=== PATIENT | female | born 1985 | race Caucasian/White ===

== ENCOUNTER 2018-12-18 16:34 | Inpatient (IN) | payer OTHER, SELFPAY ==
[~2018-12-18] VITALS: Ht 165.1 cm; Wt 93.9 kg
[2018-12-18 17:29] LABS: AMNIO PT NEGATIVE
[2018-12-18 17:44] LABS: BILIRUBIN,URINE NEGATIVE (NEG); CLARITY,URINE CLEAR; COLOR,URINE YELLOW; NITRITE,URINE NEGATIVE (NEG); PROTEIN,URINE NEGATIVE (NEG-TRACE)
[2018-12-18 17:56] LABS: BACTERIA,URINE FEW /HPF (0-FEW); SQUAMOUS EPITHELIAL CELL,UR FEW /LPF
[2018-12-18 18:00] LABS: AMPHETAMINE/METHAMPHETAMINE POS (NEG); BARBITURATES NEG (NEG); BENZODIAZEPINES NEG (NEG); CANNABINOIDS POS (NEG); COCAINE NEG (NEG); METHADONE NEG (NEG); OPIATES NEG (NEG); PHENCYCLIDINE NEG (NEG)
[2018-12-18 19:13] LABS: BASO % 0 % (0-3); EOS # 0.1 x10^3/uL (0.0-0.7); EOS % 1 % (0-3); HEMATOCRIT 32.2 % (36.0-47.0); HEMOGLOBIN 11.4 g/dL (12.0-15.5); LYMPH # 1.7 x10^3/uL (1.0-4.8); LYMPH % 15 % (24-48); MEAN CORPUSCULAR HEMOGLOBIN 32 pg (25-35); MEAN CORPUSCULAR HGB CONC 35 g/dL (31-37); MEAN CORPUSCULAR VOLUME 90 fL (79-100); MONO # 0.7 x10^3/uL (0.0-1.1); MONO % 6 % (0-9); NEUT # 8.6 x10^3uL (1.8-7.7); NEUT % 78 % (31-73); PLATELET COUNT 205 x10^3/uL (140-400); RED BLOOD COUNT 3.56 x10^6/uL (3.50-5.40); RED CELL DISTRIBUTION WIDTH 12.7 % (11.5-14.5); WHITE BLOOD COUNT 11.1 x10^3/uL (4.0-11.0)
[2018-12-18] MEDS ORDERED: BUTORPHANOL 2 MG/ML VIAL. ONE (19:57)
[2018-12-18] MEDS ORDERED: TERBUTALINE 1 MG/ML VIAL. SQ PRN (20:00)
[2018-12-18] MEDS ORDERED: LIDOCAINE 1% PF 30 ML VIAL. INJ PRN (20:00)
[2018-12-18] MEDS ORDERED: 0.9 % SODIUM CHLORIDE 10 ML DISP.SYRIN. IV PRN ×2 (20:00→20:30)
[2018-12-18] MEDS ORDERED: AMPICILLIN SODIUM 2 GM in IV NORMAL SALINE 100ML 100 ML IV ONE (20:00)
[2018-12-18] MEDS ORDERED: ACETAMINOPHEN 325 MG TABLET. PO PRN ×2 (20:00→20:30)
[2018-12-18] MEDS ORDERED: ONDANSETRON PF 4 MG/2 ML VIAL. IV PRN (20:00)
[2018-12-18] MEDS ORDERED: OXYTOCIN 30 UNIT/500 ML PREMIX 500 ML IV PRN ×3 (20:00→20:30)
[2018-12-18] MEDS: IV RINGERS,LACTATED 1000ML 1,000 ML IV SCH (20:01)
[2018-12-18 20:02] VITALS: BP 118/74
[2018-12-18] MEDS: BUTORPHANOL 2 MG/ML VIAL. IV PRN ×2 (20:02→21:23)
[2018-12-18] MEDS ORDERED: ZOLPIDEM 5 MG TABLET. PO PRN (20:30)
[2018-12-18] MEDS ORDERED: BENZOCAINE 20% TOPICAL AEROSOL SPRAY 57GM CAN. TP PRN (20:30)
[2018-12-18] MEDS ORDERED: SIMETHICONE 80 MG TAB.CHEW PO PRN (20:30)
[2018-12-18] MEDS ORDERED: DOCUSATE SODIUM 100 MG CAPSULE. PO PRN (20:30)
[2018-12-18] MEDS ORDERED: diphenhydrAMINE HCL 25 MG CAPSULE PO PRN (20:30)
[2018-12-18] MEDS ORDERED: HYDROCORTISONE 1% TOPICAL OINTMENT 30GM TUBE. TP PRN (20:30)
[2018-12-18] MEDS ORDERED: PHENYLEPH/MINERAL OIL/PETROLAT RECTAL OINTMENT 28GM TUBE. RC PRN (20:30)
[2018-12-18] MEDS ORDERED: MAG HYDROX/ALUMINUM HYD/SIMETH 30 ML ORAL.SUSP PO PRN (20:30)
[2018-12-18] MEDS ORDERED: MAGNESIUM HYDROXIDE 2,400 MG/30 ML ORAL.SUSP. PO PRN (20:30)
--- NOTE | 2018-12-18 20:34 | RAD ---
PREG MORE THAN OR EQ TO 14 WKS History: no care
pt is currently high on meth, cussing, combative
lmp February??
FINDINGS: Study interpreted without the benefit of real-time scanning. Single intrauterine fetus is identified in cephalic presentation. Placenta is anterior. Cardiac activity is documented with a heart rate of 128 bpm. movement is documented. Four-chamber heart is identified. Three-vessel cord is seen. Cord insertion is not visualized. bladder, stomach and kidneys are visualized. brain and spine are visualized. Amniotic fluid index is 4.7, which is low in quantity. The biparietal diameter, head circumference, abdominal circumference and femur length are measured. Note that the biparietal diameter and head circumference measurements correspond with 35 weeks 5 days and 35 weeks 3 days respectively. On the other hand, the abdominal circumference and femur length measurements correspond with 39 weeks 0 days and 39 weeks 2 days respectively. Overall the estimated sonographic age is 37 weeks 3 days with an estimated sonographic due date of 01/05/2019. Estimated weight is 7 lbs. 9 oz. +/- 18 ounces. IMPRESSION: Single viable intrauterine is identified. Findings are compatible with oligohydramnios with an amniotic fluid index of 4.7. Note that there is discrepancy in size measurements, with the head measuring weeks smaller than the abdominal circumference and femur length, as detailed above. Electronically signed by: Junior Zhu MD (12/18/2018 8:30 PM) [facility]
[2018-12-18] MEDS ORDERED: miSOPROStol 200 MCG TABLET ONE ×2 (22:00→22:06)
[2018-12-18] MEDS ORDERED: SUCCINYLCHOLINE 200 MG/10 ML VIAL. ONE (23:15)
[2018-12-18] MEDS ORDERED: GLYCOPYRROLATE 1 MG/5 ML VIAL. ONE (23:42)
[2018-12-18] MEDS ORDERED: LIDOCAINE 2% PF 5 ML VIAL. ONE (23:42)
[2018-12-18] MEDS ORDERED: ONDANSETRON PF 4 MG/2 ML VIAL. ONE (23:42)
[2018-12-18] MEDS ORDERED: METOCLOPRAMIDE HCL 10 MG/2 ML VIAL. ONE (23:42)
[2018-12-18] MEDS ORDERED: PROPOFOL 40 ML IV ONE (23:42)
[2018-12-18] MEDS ORDERED: OXYTOCIN 10 UNIT/ML VIAL. ONE (23:42)
[2018-12-18] MEDS ORDERED: FAMOTIDINE 20 MG/2 ML VIAL ONE (23:42)
[2018-12-18] MEDS ORDERED: ROCURONIUM 50 MG/5 ML VIAL. ONE (23:44)
[2018-12-19] MEDS ORDERED: AMPICILLIN SODIUM 1 GM in IV NORMAL SALINE 50ML 50 ML IV SCH ×2
[2018-12-19] MEDS ORDERED: IBUPROFEN 200 MG TABLET. PO SCH
--- NOTE | 2018-12-19 00:33 | PDOC ---
GENERAL General: 33 yrs old lady unknown EDC Pt got to complete dilatation and developed Distress Patient not Cooperative and Refuses to sign for inspite of explaining to patient about Risk to Baby . Discussed with Dr Simpson and Dr Archer about patient. Finaly Patient signed for Consent for . Patient also has Drug Abuse.problem. VITAL SIGNS Vital Signs: Vital Signs Date Time Temp Pulse Resp B/P (MAP) Pulse Ox O2 Delivery O2 Flow Rate FiO2 12/18/18 21:23 20 Room Air 12/18/18 20:02 97.5 90 118/74 (89) 97.5 ALLERGIES Allergies: Allergies Coded Allergies Type Severity Reaction Last Updated Verified No Known Drug Allergies 12/18/18 No MEDS Medications: Current Medications Medications (Trade) Dose Ordered Sig/Santiago Start Time Stop Time Status Last Admin Dose Admin Acetaminophen (Tylenol) 650 mg PRN Q6HRS PRN 12/18/18 20:30 Al Hydroxide/Mg Hydroxide (Mylanta Plus Xs) 30 ml PRN Q4HRS PRN 12/18/18 20:30 Ampicillin Sodium 1 gm/Sodium Chloride 50 ml @ 100 mls/hr Q4H 12/19/18 00:00 Ampicillin Sodium 2 gm/Sodium Chloride 100 ml @ 200 mls/hr 1X ONCE 12/18/18 20:00 12/18/18 20:29 DC 12/18/18 21:22 200 MLS/HR Benzocaine (Americaine) 1 spray PRN QID PRN 12/18/18 20:30 Butorphanol Tartrate (Stadol) 2 mg STK-MED ONCE 12/18/18 19:57 12/18/18 19:58 DC Clindamycin Phosphate 300 mg/ Dextrose 52 ml @ 104 mls/hr Q8H 12/19/18 00:30 12/19/18 16:59 Diphenhydramine HCl (Benadryl) 25 mg PRN Q6HRS PRN 12/18/18 20:30 Docusate Sodium (Colace) 100 mg PRN BID PRN 12/18/18 20:30 Ephedrine Sulfate (Akovaz) 50 mg STK-MED ONCE 12/18/18 23:47 12/18/18 23:48 DC Famotidine (Pepcid Vial) 20 mg STK-MED ONCE 12/18/18 23:42 12/18/18 23:43 DC Ferrous Sulfate (Feosol) 325 mg BIDWMEALS 12/19/18 08:00 Glycopyrrolate (Robinul) 1 mg STK-MED ONCE 12/18/18 23:42 12/18/18 23:43 DC Hydrocortisone (Cortaid) 1 claude PRN QID PRN 12/18/18 20:30 Ibuprofen (Motrin) 600 mg Q6HRS 12/19/18 00:00 Info (Do NOT chart on this placeholder) 1 ea 1X PRN PRN 12/18/18 20:30 Lidocaine HCl (Lidocaine Pf 2% Vial) 5 ml STK-MED ONCE 12/18/18 23:42 12/18/18 23:43 DC Lidocaine HCl (Xylocaine 1% Pf 30ml Vial) 30 ml 1X PRN PRN 12/18/18 20:00 12/20/18 19:59 Magnesium Hydroxide (Milk Of Magnesia) 2,400 mg PRN DAILY PRN 12/18/18 20:30 Metoclopramide HCl (Reglan Vial) 10 mg STK-MED ONCE 12/18/18 23:42 12/18/18 23:43 DC Misoprostol (Cytotec 200mcg Tab) 200 mcg STK-MED ONCE 12/18/18 22:06 12/18/18 22:07 DC Ondansetron HCl (Zofran) 4 mg STK-MED ONCE 12/18/18 23:42 12/18/18 23:43 DC Oxytocin (Pitocin) 10 unit STK-MED ONCE 12/18/18 23:42 12/18/18 23:43 DC Oxytocin/Sodium Chloride 500 ml @ 62.5 mls/hr CONT PRN 12/18/18 20:30 12/19/18 04:29 Phenyleph/Shark Oil/Min Oil/Petrol (Preparation H) 1 claude PRN QID PRN 12/18/18 20:30 Propofol 40 ml @ As Directed STK-MED ONCE 12/18/18 23:42 12/18/18 23:43 DC Ringer's Solution 1,000 ml @ 125 mls/hr Q8H 12/18/18 19:55 12/18/18 20:01 125 MLS/HR Rocuronium [place] (Zemuron) 50 mg STK-MED ONCE 12/18/18 23:44 12/18/18 23:45 DC Simethicone (Gas-X) 80 mg PRN AFTMEALHC PRN 12/18/18 20:30 Sodium Chloride (Normal Saline Flush) 10 ml QSHIFT PRN 12/18/18 20:30 Succinylcholine Chloride (Anectine) 200 mg STK-MED ONCE 12/18/18 23:15 12/18/18 23:16 DC Terbutaline Sulfate (Brethine) 0.25 mg 1X PRN PRN 12/18/18 20:00 12/19/18 19:59 Zolpidem Tartrate (Ambien) 5 mg PRN QHS PRN 12/18/18 20:30 LAB Lab: Laboratory Tests Test 12/18/18 16:50 12/18/18 17:05 12/18/18 19:00 Urine Collection Type Unknown Urine Color Yellow Urine Clarity Clear Urine pH 7.0 Urine Specific [place] 1.015 Urine Protein Negative mg/dL (NEG-TRACE) Urine Glucose (UA) Negative mg/dL (NEG) Urine Ketones (Stick) Negative mg/dL (NEG) Urine Blood Moderate (NEG) Urine Nitrite Negative (NEG) Urine Bilirubin Negative (NEG) Urine Urobilinogen Dipstick 1.0 mg/dL (0.2 mg/dL) Urine Leukocyte Esterase Large (NEG) Urine RBC 1-2 /HPF (0-2) Urine WBC 11-20 /HPF (0-4) Urine Squamous Epithelial Cells Few /LPF Urine Bacteria Few /HPF (0-FEW) Urine Mucus Slight /LPF Urine Opiates Screen Neg (NEG) Urine Methadone Screen Neg (NEG) Urine Barbiturates Neg (NEG) Urine Phencyclidine Screen Neg (NEG) Urine Amphetamine/Methamphetamine Pos (NEG) Urine Benzodiazepines Screen Neg (NEG) Urine Cocaine Screen Neg (NEG) Urine Cannabinoids Screen Pos (NEG) Urine Ethyl Alcohol Neg (NEG) Amniotic Fluid Swab Test Negative White Blood Count 11.1 x10^3/uL (4.0-11.0) Red Blood Count 3.56 x10^6/uL (3.50-5.40) Hemoglobin 11.4 g/dL (12.0-15.5) Hematocrit 32.2 % (36.0-47.0) Mean Corpuscular Volume 90 fL (79-100) Mean Corpuscular Hemoglobin 32 pg (25-35) Mean Corpuscular Hemoglobin Concent 35 g/dL (31-37) Red Cell Distribution Width 12.7 % (11.5-14.5) Platelet Count 205 x10^3/uL (140-400) Neutrophils (%) (Auto) 78 % (31-73) Lymphocytes (%) (Auto) 15 % (24-48) Monocytes (%) (Auto) 6 % (0-9) Eosinophils (%) (Auto) 1 % (0-3) Basophils (%) (Auto) 0 % (0-3) Neutrophils # (Auto) 8.6 x10^3uL (1.8-7.7) Lymphocytes # (Auto) 1.7 x10^3/uL (1.0-4.8) Monocytes # (Auto) 0.7 x10^3/uL (0.0-1.1) Eosinophils # (Auto) 0.1 x10^3/uL (0.0-0.7) Basophils # (Auto) 0.0 x10^3/uL (0.0-0.2) Treponema pallidum Antibody Nonreactive (Nonreactive) Hepatitis B Surface Antigen Nonreactive (Nonreactive) ASSESSMENT & PLAN A&P Under [place] LSCS done and alive female baby 7lbs and 6ounces. delivered with Apgars 2 and 9 in10 minutes.EBL 1000.00cc FLAQUITO YEH MD December 19, 2018 00:33
[2018-12-19] MEDS ORDERED: NALOXONE 0.4 MG/ML VIAL. IV PRN (01:00)
[2018-12-19] MEDS ORDERED: SEVOFLURANE 61 TO 120 MINUTES. IH ONE (01:00)
[2018-12-19] MEDS ORDERED: HYDROmorphone 12mg/30ml PCA 30 ML IV PRN (01:00)
--- NOTE | 2018-12-19 01:06 | HP ---
ADMIT DATE: 12/18/2018 HISTORY OF PRESENT ILLNESS: This patient is a 33-year-old white female who is a 8, para 7, unknown EDC, no care. Walked into Labor and Delivery room with a history of having contractions and abdominal pain. At the time of admission to the hospital, cervix was dilated to 3 cm and urinalysis showed positive for methamphetamine and marijuana. So, the patient has a drug abuse problem and also very uncooperative patient and admitted in active labor. PHYSICAL EXAMINATION: VITAL SIGNS: Stable. HEAD, EYES, EARS, NOSE AND THROAT EXAMINATION: Within normal limits. LUNGS: Clear. HEART: Heart sounds regular, sinus rhythm. ABDOMEN: Term size uterus. heart tones are 136 per minute, vertex presenting. PELVIC EXAMINATION: Showed cervix 3 cm dilated, membranes intact. She did have a sonogram, which showed about 39 weeks and with low amniotic fluid and abdominal circumference of the baby more than the head circumference. DIAGNOSES: 8, para 7, term with oligohydramnios. PLAN: Admission and expectant labor management. FLAQUITO YEH MD DR: RITA/gricelda JOB#: [id number] / [id number]
[2018-12-19] MEDS: HYDROmorphone 2 MG/ML VIAL IV PRN ×2 (01:30→05:41)
--- NOTE | 2018-12-19 01:33 | OP ---
DATE OF SURGERY: 12/18/2018 PREOPERATIVE DIAGNOSIS: 8, para 7, oligohydramnios, distress. POSTOPERATIVE DIAGNOSIS: 8, para 7, oligohydramnios, distress. OPERATION PERFORMED: Lower segment section. OPERATIVE PROCEDURE: The patient was taken to the operating room as an emergency section for distress. When all the instruments were ready, the patient did receive general anesthesia and under general anesthesia, a Pfannenstiel incision was made, abdomen opened in layers. The bladder flap peritoneum was dissected. Bladder was pushed way down the lower segment of the uterus and incision was made on the lower segment of the uterus and was extended on either side using index fingers. Amniotomy done. There was not much amniotic fluid. A live female weighing 7 pounds 6 ounces was delivered at 2337 hours with the score of 2 and 9 at 10 minutes and cord was clamped and cut and cord ph's were sent for. Cord blood was taken. Placenta removed. Uterus sutured in 2 layers using #1 chromic catgut sutures. Reperitonealization was done with continuous 0 chromic catgut sutures and uterus placed in the abdominal cavity. All the blood clots were removed and abdomen closed in layers using continuous 0 chromic catgut sutures for the peritoneum, the muscle, the fascia, 3-0 plain continuous sutures applied for subcutaneous tissue and 3-0 Vicryl subcutaneous sutures were placed. Pressure dressing was given. The patient was sent to the recovery room in good condition. No complications encountered at time of the procedure. ESTIMATED BLOOD LOSS: 1000 mL. Baby is referred to credit risk analyst for further care and treatment. The patient tolerated the procedure well. No complications. FLAQUITO YEH MD DR: RITA/gricelda JOB#: [id number] / [id number]
[2018-12-19] MEDS: CLINDAMYCIN INJ 300 MG in IV DEXTROSE 5% 50 ML IV SCH ×3 (02:37→16:30)
[2018-12-19 03:46] VITALS: BP 135/78
[2018-12-19 04:45] VITALS: BP 146/82
[2018-12-19] MEDS: IV RINGERS,LACTATED 1000ML 1,000 ML IV SCH (05:40)
[2018-12-19 06:02] VITALS: BP 130/78
[2018-12-19] MEDS ORDERED: oxyCODONE/APAP 5/325 1 TAB TABLET PO PRN (08:00)
[2018-12-19] MEDS: IBUPROFEN 400 MG TABLET. PO PRN ×2 (08:06→16:07)
[2018-12-19] MEDS: oxyCODONE/APAP 5/325 1 TAB TABLET PO PRN ×3 (08:06→21:01)
--- NOTE | 2018-12-19 08:14 | PDOC ---
GENERAL General: Vital signs stable Patient anxious to see baby. VITAL SIGNS Vital Signs: Vital Signs Date Time Temp Pulse Resp B/P (MAP) Pulse Ox O2 Delivery O2 Flow Rate FiO2 12/19/18 06:02 97.6 64 18 130/78 (95) 100 97.6 12/19/18 04:45 Room Air ALLERGIES Allergies: Allergies Coded Allergies Type Severity Reaction Last Updated Verified No Known Drug Allergies 12/18/18 No MEDS Medications: Current Medications Medications (Trade) Dose Ordered Sig/Santiago Start Time Stop Time Status Last Admin Dose Admin Acetaminophen (Tylenol) 650 mg PRN Q6HRS PRN 12/18/18 20:30 Al Hydroxide/Mg Hydroxide (Mylanta Plus Xs) 30 ml PRN Q4HRS PRN 12/18/18 20:30 Ampicillin Sodium 1 gm/Sodium Chloride 50 ml @ 100 mls/hr Q4H 12/19/18 00:00 12/19/18 02:01 DC Ampicillin Sodium 2 gm/Sodium Chloride 100 ml @ 200 mls/hr 1X ONCE 12/18/18 20:00 12/18/18 20:29 DC 12/18/18 21:22 200 MLS/HR Benzocaine (Americaine) 1 spray PRN QID PRN 12/18/18 20:30 Butorphanol Tartrate (Stadol) 2 mg STK-MED ONCE 12/18/18 19:57 12/18/18 19:58 DC Clindamycin Phosphate 300 mg/ Dextrose 52 ml @ 104 mls/hr Q8H 12/19/18 00:30 12/19/18 16:59 12/19/18 02:37 104 MLS/HR Diphenhydramine HCl (Benadryl) 25 mg PRN Q6HRS PRN 12/18/18 20:30 Docusate Sodium (Colace) 100 mg PRN BID PRN 12/18/18 20:30 Ephedrine Sulfate (Akovaz) 50 mg STK-MED ONCE 12/18/18 23:47 12/18/18 23:48 DC Famotidine (Pepcid Vial) 20 mg STK-MED ONCE 12/18/18 23:42 12/18/18 23:43 DC Ferrous Sulfate (Feosol) 325 mg BIDWMEALS 12/19/18 08:00 Glycopyrrolate (Robinul) 1 mg STK-MED ONCE 12/18/18 23:42 12/18/18 23:43 DC Hydrocortisone (Cortaid) 1 claude PRN QID PRN 12/18/18 20:30 Hydromorphone HCl 30 ml @ 0 mls/hr CONT PRN PRN 12/19/18 01:00 Hydromorphone HCl (Dilaudid) 2 mg PRN Q4HRS PRN 12/19/18 01:00 12/19/18 05:41 2 MG Ibuprofen (Motrin) 600 mg Q6HRS 12/19/18 00:00 Info (Do NOT chart on this placeholder) 1 ea 1X PRN PRN 12/18/18 20:30 Lidocaine HCl (Lidocaine Pf 2% Vial) 5 ml STK-MED ONCE 12/18/18 23:42 12/18/18 23:43 DC Lidocaine HCl (Xylocaine 1% Pf 30ml Vial) 30 ml 1X PRN PRN 12/18/18 20:00 12/20/18 19:59 Magnesium Hydroxide (Milk Of Magnesia) 2,400 mg PRN DAILY PRN 12/18/18 20:30 Metoclopramide HCl (Reglan Vial) 10 mg STK-MED ONCE 12/18/18 23:42 12/18/18 23:43 DC Misoprostol (Cytotec 200mcg Tab) 200 mcg STK-MED ONCE 12/18/18 22:06 12/18/18 22:07 DC Naloxone HCl (Narcan) 0.4 mg PRN Q2MIN PRN 12/19/18 01:00 Ondansetron HCl (Zofran) 4 mg STK-MED ONCE 12/18/18 23:42 12/18/18 23:43 DC Oxycodone/ Acetaminophen (Percocet 5/325) 2 tab PRN Q4HRS PRN 12/19/18 08:00 12/19/18 08:06 2 TAB Oxytocin (Pitocin) 10 unit STK-MED ONCE 12/18/18 23:42 12/18/18 23:43 DC Oxytocin/Sodium Chloride 500 ml @ 62.5 mls/hr CONT PRN 12/18/18 20:30 12/19/18 04:29 DC Phenyleph/Shark Oil/Min Oil/Petrol (Preparation H) 1 claude PRN QID PRN 12/18/18 20:30 Propofol 40 ml @ As Directed STK-MED ONCE 12/18/18 23:42 12/18/18 23:43 DC Ringer's Solution 1,000 ml @ 125 mls/hr Q8H 12/18/18 19:55 12/19/18 05:40 125 MLS/HR Rocuronium [place] (Zemuron) 50 mg STK-MED ONCE 12/18/18 23:44 12/18/18 23:45 DC Sevoflurane (Ultane) 60 ml STK-MED ONCE 12/19/18 01:00 12/19/18 01:01 DC Simethicone (Gas-X) 80 mg PRN AFTMEALHC PRN 12/18/18 20:30 Sodium Chloride (Normal Saline Flush) 10 ml QSHIFT PRN 12/18/18 20:30 Succinylcholine Chloride (Anectine) 200 mg STK-MED ONCE 12/18/18 23:15 12/18/18 23:16 DC Terbutaline Sulfate (Brethine) 0.25 mg 1X PRN PRN 12/18/18 20:00 12/19/18 19:59 Zolpidem Tartrate (Ambien) 5 mg PRN QHS PRN 12/18/18 20:30 LAB Lab: Laboratory Tests Test 12/18/18 16:50 12/18/18 17:05 12/18/18 19:00 12/19/18 04:15 Urine Collection Type Unknown Urine Color Yellow Urine Clarity Clear Urine pH 7.0 Urine Specific [place] 1.015 Urine Protein Negative mg/dL (NEG-TRACE) Urine Glucose (UA) Negative mg/dL (NEG) Urine Ketones (Stick) Negative mg/dL (NEG) Urine Blood Moderate (NEG) Urine Nitrite Negative (NEG) Urine Bilirubin Negative (NEG) Urine Urobilinogen Dipstick 1.0 mg/dL (0.2 mg/dL) Urine Leukocyte Esterase Large (NEG) Urine RBC 1-2 /HPF (0-2) Urine WBC 11-20 /HPF (0-4) Urine Squamous Epithelial Cells Few /LPF Urine Bacteria Few /HPF (0-FEW) Urine Mucus Slight /LPF Urine Opiates Screen Neg (NEG) Urine Methadone Screen Neg (NEG) Urine Barbiturates Neg (NEG) Urine Phencyclidine Screen Neg (NEG) Urine Amphetamine/Methamphetamine Pos (NEG) Urine Benzodiazepines Screen Neg (NEG) Urine Cocaine Screen Neg (NEG) Urine Cannabinoids Screen Pos (NEG) Urine Ethyl Alcohol Neg (NEG) Amniotic Fluid Swab Test Negative White Blood Count 11.1 x10^3/uL (4.0-11.0) Red Blood Count 3.56 x10^6/uL (3.50-5.40) Hemoglobin 11.4 g/dL (12.0-15.5) Hematocrit 32.2 % (36.0-47.0) 32.0 % (36.0-47.0) Mean Corpuscular Volume 90 fL (79-100) Mean Corpuscular Hemoglobin 32 pg (25-35) Mean Corpuscular Hemoglobin Concent 35 g/dL (31-37) Red Cell Distribution Width 12.7 % (11.5-14.5) Platelet Count 205 x10^3/uL (140-400) Neutrophils (%) (Auto) 78 % (31-73) Lymphocytes (%) (Auto) 15 % (24-48) Monocytes (%) (Auto) 6 % (0-9) Eosinophils (%) (Auto) 1 % (0-3) Basophils (%) (Auto) 0 % (0-3) Neutrophils # (Auto) 8.6 x10^3uL (1.8-7.7) Lymphocytes # (Auto) 1.7 x10^3/uL (1.0-4.8) Monocytes # (Auto) 0.7 x10^3/uL (0.0-1.1) Eosinophils # (Auto) 0.1 x10^3/uL (0.0-0.7) Basophils # (Auto) 0.0 x10^3/uL (0.0-0.2) Treponema pallidum Antibody Nonreactive (Nonreactive) Hepatitis B Surface Antigen Nonreactive (Nonreactive) ASSESSMENT & PLAN A&P Abdomen soft Uterus firm Lochia normal. urine clear.Doing ok Post op. Has lot of pain.Getting pain medicine. FLQAUITO YEH MD December 19, 2018 08:14
[2018-12-19 10:06] LABS: BASO % 0 % (0-3); EOS % 0 % (0-3); HEMATOCRIT 32.5 % (36.0-47.0); HEMOGLOBIN 11.1 g/dL (12.0-15.5); LYMPH # 0.8 x10^3/uL (1.0-4.8); LYMPH % 5 % (24-48); MEAN CORPUSCULAR HEMOGLOBIN 31 pg (25-35); MEAN CORPUSCULAR HGB CONC 34 g/dL (31-37); MEAN CORPUSCULAR VOLUME 92 fL (79-100); MONO # 0.7 x10^3/uL (0.0-1.1); MONO % 4 % (0-9); NEUT # 14.7 x10^3uL (1.8-7.7); NEUT % 91 % (31-73); PLATELET COUNT 184 x10^3/uL (140-400); RED BLOOD COUNT 3.54 x10^6/uL (3.50-5.40); RED CELL DISTRIBUTION WIDTH 13.2 % (11.5-14.5); WHITE BLOOD COUNT 16.2 x10^3/uL (4.0-11.0)
[2018-12-19 11:09] VITALS: BP 129/84
[2018-12-19 12:44] LABS: % BANDS 34 % (0-9); % LYMPHS 2 % (24-48); % MONOS 2 % (0-10); % SEGS 62 % (35-66)
[2018-12-19 12:45] LABS: PLT ESTIMATE ADEQUATE (ADEQUATE)
--- NOTE | 2018-12-19 13:51 | NUR ---
PT STATES PUTTING BABY UP FOR ADOPTION/ DOES NOT NOR CANNOT TAKE CARE OF
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
[2018-12-19 16:32] VITALS: BP 130/74
[2018-12-19] MEDS: FERROUS SULFATE 325 MG TABLET. PO SCH (17:00)
[2018-12-19 23:04] VITALS: BP 108/68
[2018-12-20] MEDS: IBUPROFEN 400 MG TABLET. PO PRN ×2 (06:03→13:42)
[2018-12-20] MEDS: oxyCODONE/APAP 5/325 1 TAB TABLET PO PRN ×2 (06:12→15:39)
[2018-12-20 06:53] VITALS: BP 132/75
[2018-12-20 07:13] LABS: BASO % 0 % (0-3); EOS # 0.1 x10^3/uL (0.0-0.7); EOS % 1 % (0-3); HEMATOCRIT 27.8 % (36.0-47.0); HEMOGLOBIN 9.6 g/dL (12.0-15.5); LYMPH # 1.6 x10^3/uL (1.0-4.8); LYMPH % 20 % (24-48); MEAN CORPUSCULAR HEMOGLOBIN 32 pg (25-35); MEAN CORPUSCULAR HGB CONC 35 g/dL (31-37); MEAN CORPUSCULAR VOLUME 91 fL (79-100); MONO # 0.5 x10^3/uL (0.0-1.1); MONO % 6 % (0-9); NEUT # 5.9 x10^3uL (1.8-7.7); NEUT % 73 % (31-73); PLATELET COUNT 173 x10^3/uL (140-400); RED BLOOD COUNT 3.04 x10^6/uL (3.50-5.40); RED CELL DISTRIBUTION WIDTH 13.1 % (11.5-14.5); WHITE BLOOD COUNT 8.1 x10^3/uL (4.0-11.0)
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
[2018-12-20] MEDS: FERROUS SULFATE 325 MG TABLET. PO SCH ×3 (08:00→17:10)
--- NOTE | 2018-12-20 08:49 | NUR ---
SS following up. SS contacted the PAT team and requested that they visit with mother for assessment and evaluation. Lul to come and visit with pt.
--- NOTE | 2018-12-20 09:43 | PDOC ---
GENERAL General: Patient is Sleepy. Hardly can open her eyes. Abdomen soft Uterus firm Lochia normal. Plan dismissal tomorrow. VITAL SIGNS Vital Signs: Vital Signs Date Time Temp Pulse Resp B/P (MAP) Pulse Ox O2 Delivery O2 Flow Rate FiO2 12/20/18 06:53 97.9 59 18 132/75 (94) 96 Room Air 97.9 I & O I & O Intake and Output 12/20/18 06:59 Intake Total 520 ml Output Total 1500 ml Balance -980 ml Intake Oral 520 ml Output Urine Total 1500 ml ALLERGIES Allergies: Allergies Coded Allergies Type Severity Reaction Last Updated Verified No Known Drug Allergies 12/18/18 No MEDS Medications: Current Medications Medications (Trade) Dose Ordered Sig/Santiago Start Time Stop Time Status Last Admin Dose Admin Acetaminophen (Tylenol) 650 mg PRN Q6HRS PRN 12/18/18 20:30 Al Hydroxide/Mg Hydroxide (Mylanta Plus Xs) 30 ml PRN Q4HRS PRN 12/18/18 20:30 Ampicillin Sodium 1 gm/Sodium Chloride 50 ml @ 100 mls/hr Q4H 12/19/18 00:00 12/19/18 02:01 DC Ampicillin Sodium 2 gm/Sodium Chloride 100 ml @ 200 mls/hr 1X ONCE 12/18/18 20:00 12/19/18 17:29 DC 12/18/18 21:22 200 MLS/HR Benzocaine (Americaine) 1 spray PRN QID PRN 12/18/18 20:30 Butorphanol Tartrate (Stadol) 2 mg STK-MED ONCE 12/18/18 19:57 12/19/18 17:29 DC Clindamycin Phosphate 300 mg/ Dextrose 52 ml @ 104 mls/hr Q8H 12/19/18 00:30 12/19/18 16:59 DC 12/19/18 02:37 104 MLS/HR Diphenhydramine HCl (Benadryl) 25 mg PRN Q6HRS PRN 12/18/18 20:30 Docusate Sodium (Colace) 100 mg PRN BID PRN 12/18/18 20:30 12/19/18 21:01 100 MG Ephedrine Sulfate (Akovaz) 50 mg STK-MED ONCE 12/18/18 23:47 12/19/18 17:29 DC Famotidine (Pepcid Vial) 20 mg STK-MED ONCE 12/18/18 23:42 12/19/18 17:29 DC Ferrous Sulfate (Feosol) 325 mg BIDWMEALS 12/19/18 08:00 12/20/18 08:15 325 MG Glycopyrrolate (Robinul) 1 mg STK-MED ONCE 12/18/18 23:42 12/19/18 17:29 DC Hydrocortisone (Cortaid) 1 claude PRN QID PRN 12/18/18 20:30 Hydromorphone HCl 30 ml @ 0 mls/hr CONT PRN PRN 12/19/18 01:00 12/19/18 17:29 DC Hydromorphone HCl (Dilaudid) 2 mg PRN Q4HRS PRN 12/19/18 01:00 12/19/18 17:29 DC 12/19/18 05:41 2 MG Ibuprofen (Motrin) 600 mg Q6HRS 12/19/18 00:00 12/19/18 17:41 DC Info (Do NOT chart on this placeholder) 1 ea 1X PRN PRN 12/18/18 20:30 Lidocaine HCl (Lidocaine Pf 2% Vial) 5 ml STK-MED ONCE 12/18/18 23:42 12/19/18 17:29 DC Lidocaine HCl (Xylocaine 1% Pf 30ml Vial) 30 ml 1X PRN PRN 12/18/18 20:00 12/19/18 17:29 DC Magnesium Hydroxide (Milk Of Magnesia) 2,400 mg PRN DAILY PRN 12/18/18 20:30 Metoclopramide HCl (Reglan Vial) 10 mg STK-MED ONCE 12/18/18 23:42 12/19/18 17:29 DC Misoprostol (Cytotec 200mcg Tab) 800 mcg STK-MED ONCE 12/18/18 22:00 12/19/18 17:29 DC Naloxone HCl (Narcan) 0.4 mg PRN Q2MIN PRN 12/19/18 01:00 12/19/18 17:29 DC Ondansetron HCl (Zofran) 4 mg STK-MED ONCE 12/18/18 23:42 12/19/18 17:29 DC Oxycodone/ Acetaminophen (Percocet 5/325) 2 tab PRN Q4HRS PRN 12/19/18 08:00 12/20/18 06:12 2 TAB Oxytocin (Pitocin) 10 unit STK-MED ONCE 12/18/18 23:42 12/19/18 17:29 DC Oxytocin/Sodium Chloride 500 ml @ 62.5 mls/hr CONT PRN 12/18/18 20:30 12/19/18 04:29 DC Phenyleph/Shark Oil/Min Oil/Petrol (Preparation H) 1 claude PRN QID PRN 12/18/18 20:30 Propofol 40 ml @ As Directed STK-MED ONCE 12/18/18 23:42 12/19/18 17:29 DC Ringer's Solution 1,000 ml @ 125 mls/hr Q8H 12/18/18 19:55 12/19/18 17:29 DC 12/19/18 05:40 125 MLS/HR Rocuronium [place] (Zemuron) 50 mg STK-MED ONCE 12/18/18 23:44 12/19/18 17:29 DC Sevoflurane (Ultane) 60 ml STK-MED ONCE 12/19/18 01:00 12/19/18 17:29 DC Simethicone (Gas-X) 80 mg PRN AFTMEALHC PRN 12/18/18 20:30 Sodium Chloride (Normal Saline Flush) 10 ml QSHIFT PRN 12/18/18 20:30 Succinylcholine Chloride (Anectine) 200 mg STK-MED ONCE 12/18/18 23:15 12/19/18 17:29 DC Terbutaline Sulfate (Brethine) 0.25 mg 1X PRN PRN 12/18/18 20:00 12/19/18 17:29 DC Zolpidem Tartrate (Ambien) 5 mg PRN QHS PRN 12/18/18 20:30 LAB Lab: Laboratory Tests Test 12/20/18 06:00 White Blood Count 8.1 x10^3/uL (4.0-11.0) Red Blood Count 3.04 x10^6/uL (3.50-5.40) Hemoglobin 9.6 g/dL (12.0-15.5) Hematocrit 27.8 % (36.0-47.0) Mean Corpuscular Volume 91 fL (79-100) Mean Corpuscular Hemoglobin 32 pg (25-35) Mean Corpuscular Hemoglobin Concent 35 g/dL (31-37) Red Cell Distribution Width 13.1 % (11.5-14.5) Platelet Count 173 x10^3/uL (140-400) Neutrophils (%) (Auto) 73 % (31-73) Lymphocytes (%) (Auto) 20 % (24-48) Monocytes (%) (Auto) 6 % (0-9) Eosinophils (%) (Auto) 1 % (0-3) Basophils (%) (Auto) 0 % (0-3) Neutrophils # (Auto) 5.9 x10^3uL (1.8-7.7) Lymphocytes # (Auto) 1.6 x10^3/uL (1.0-4.8) Monocytes # (Auto) 0.5 x10^3/uL (0.0-1.1) Eosinophils # (Auto) 0.1 x10^3/uL (0.0-0.7) Basophils # (Auto) 0.0 x10^3/uL (0.0-0.2) ASSESSMENT & PLAN A&P Patient will go home tomorrow. She needs Psych Consult, Social Service consult and Pain Clinic consultations as well.before Patient goes home. FLAQUITO YEH MD December 20, 2018 09:43
[2018-12-20 12:39] VITALS: BP 123/70
--- NOTE | 2018-12-20 12:58 | NUR ---
SS following up with discharge planning. Lul from PAT team met with mother and has made arrangements for pt to go to [facility] ([facility]) on discharge. Lul reported that he provided mother's RN with address and contact information as pt will need cab pass to [facility] at discharge. Lul also reported that pt's name is Moraima. SS notified DCF worker, Patricia Diaz, of the name Moraima. DCF was able to find mother in the system. Mothers name is Moraima Arguello, SSN: [id number], 1985. Case management notified and was able to find that mother has active [facility] Medicaid. account development manager, Nesha Torrez, notifying registration. DCF worker, Patricia Diaz, reported that she would come to the hospital this afternoon to meet with mother.
--- NOTE | 2018-12-20 15:38 | NUR ---
SS following up. DCF came to hospital and met with mother in room. DCF worker, Patricia Diaz, notified SS that they will be pursuing court orders to bring into DCF custody and requested that infant remain in the hospital until court orders have been received. Infant and mother RN notified.
[2018-12-20 17:06] VITALS: BP 138/83
--- NOTE | 2018-12-20 18:06 | PATHOLOGY ---
[facility] Accession Number: [id number] . 01 Material submitted: . placenta - PLACENTA WITH CORD . 01 Clinical history: . + meth, + marijuana, no PNC, , please see delivery summary. . 02 Diagnosis: 632 gram placenta of an estimated term gestation with attached membranes and umbilical cord: - Villous chorangiosis. - Septal cyst. (JPM:[facility] 12/20/2018) QTP/12/20/2018 . 02 Comment: There is no evidence of an acute chorioamnionitis or villitis. There are no infarcts. (JPM:[facility] 12/20/2018) . 02 Electronically signed: . Poncho Baer MD, Pathologist NPI- [id number] . 01 Gross description: . Received in formalin labeled "[facility], [place], placenta" is a aldrich placenta with attached membranes and umbilical cord. The placental disc measures 17.5 x 17.1 x 4.4 cm. The membranes are transparent and thin with the site of membrane rupture 4.2 cm from the placental disc. The membranes have marginal insertion. The umbilical cord measures 32.8 cm in length, 1.3 cm in diameter, contains three vessels and inserts eccentrically, 4.5 cm from the closest placental margin. There are no true knots in the umbilical cord. The trimmed placental weight is 632 grams. The surface is blue-barger with minimal subchorionic fibrin. Amnion nodosum is not present. Cysts are not present on the surface. The maternal surface has ragged but grossly complete cotyledons and no basal hemorrhage. Sectioning through the placental disc reveals no calcification or infarcts, and a 1.5 cm centrally located mucinous cyst. Sections are submitted as follows: . A1 proximal and distal umbilical cord A2 membranes, rolled A3 independent sales representative peripheral placenta A4 independent sales representative central placenta ([facility]; 12/19/2018) SYC/SYC . 02 Pathologist provided ICD-10: O43.193, O82, Z37.0 . 02 CPT . 002139 Specimen Comment: A courtesy copy of this report has been sent to Specimen Comment: [phone]. Specimen Comment: Report sent to Performed at: 01 [facility] [address] [facility] [address], [place] [id number] MD Vincent Phan MD Phone: [phone] Performed at: 02 [facility] [address] [place], [place] [id number] MD Poncho Baer MD Phone: [phone]
[2018-12-21 05:00] VITALS: BP 115/70
[2018-12-21] MEDS: IBUPROFEN 400 MG TABLET. PO PRN (05:16)
--- NOTE | 2018-12-21 07:55 | PDOC ---
GENERAL General: Vital signs stable Patient will be dismissed today VITAL SIGNS Vital Signs: Vital Signs Date Time Temp Pulse Resp B/P (MAP) Pulse Ox O2 Delivery O2 Flow Rate FiO2 12/21/18 06:24 Room Air 12/21/18 05:17 96 12/21/18 05:00 98.0 67 18 115/70 (85) 98.0 ALLERGIES Allergies: Allergies Coded Allergies Type Severity Reaction Last Updated Verified No Known Drug Allergies 12/18/18 No MEDS Medications: Current Medications Medications (Trade) Dose Ordered Sig/Santiago Start Time Stop Time Status Last Admin Dose Admin Acetaminophen (Tylenol) 650 mg PRN Q6HRS PRN 12/18/18 20:30 Al Hydroxide/Mg Hydroxide (Mylanta Plus Xs) 30 ml PRN Q4HRS PRN 12/18/18 20:30 Ampicillin Sodium 1 gm/Sodium Chloride 50 ml @ 100 mls/hr Q4H 12/19/18 00:00 12/19/18 02:01 DC Ampicillin Sodium 2 gm/Sodium Chloride 100 ml @ 200 mls/hr 1X ONCE 12/18/18 20:00 12/19/18 17:29 DC 12/18/18 21:22 200 MLS/HR Benzocaine (Americaine) 1 spray PRN QID PRN 12/18/18 20:30 Butorphanol Tartrate (Stadol) 2 mg STK-MED ONCE 12/18/18 19:57 12/19/18 17:29 DC Clindamycin Phosphate 300 mg/ Dextrose 52 ml @ 104 mls/hr Q8H 12/19/18 00:30 12/19/18 16:59 DC 12/19/18 02:37 104 MLS/HR Diphenhydramine HCl (Benadryl) 25 mg PRN Q6HRS PRN 12/18/18 20:30 Docusate Sodium (Colace) 100 mg PRN BID PRN 12/18/18 20:30 12/19/18 21:01 100 MG Ephedrine Sulfate (Akovaz) 50 mg STK-MED ONCE 12/18/18 23:47 12/19/18 17:29 DC Famotidine (Pepcid Vial) 20 mg STK-MED ONCE 12/18/18 23:42 12/19/18 17:29 DC Ferrous Sulfate (Feosol) 325 mg BIDWMEALS 12/19/18 08:00 12/20/18 17:10 325 MG Glycopyrrolate (Robinul) 1 mg STK-MED ONCE 12/18/18 23:42 12/19/18 17:29 DC Hydrocortisone (Cortaid) 1 cluade PRN QID PRN 12/18/18 20:30 Hydromorphone HCl 30 ml @ 0 mls/hr CONT PRN PRN 12/19/18 01:00 12/19/18 17:29 DC Hydromorphone HCl (Dilaudid) 2 mg PRN Q4HRS PRN 12/19/18 01:00 12/19/18 17:29 DC 12/19/18 05:41 2 MG Ibuprofen (Motrin) 600 mg Q6HRS 12/19/18 00:00 12/19/18 17:41 DC Info (Do NOT chart on this placeholder) 1 ea 1X PRN PRN 12/18/18 20:30 Lidocaine HCl (Lidocaine Pf 2% Vial) 5 ml STK-MED ONCE 12/18/18 23:42 12/19/18 17:29 DC Lidocaine HCl (Xylocaine 1% Pf 30ml Vial) 30 ml 1X PRN PRN 12/18/18 20:00 12/19/18 17:29 DC Magnesium Hydroxide (Milk Of Magnesia) 2,400 mg PRN DAILY PRN 12/18/18 20:30 12/20/18 10:26 2,400 MG Metoclopramide HCl (Reglan Vial) 10 mg STK-MED ONCE 12/18/18 23:42 12/19/18 17:29 DC Misoprostol (Cytotec 200mcg Tab) 800 mcg STK-MED ONCE 12/18/18 22:00 12/19/18 17:29 DC Naloxone HCl (Narcan) 0.4 mg PRN Q2MIN PRN 12/19/18 01:00 12/19/18 17:29 DC Ondansetron HCl (Zofran) 4 mg STK-MED ONCE 12/18/18 23:42 12/19/18 17:29 DC Oxycodone/ Acetaminophen (Percocet 5/325) 2 tab PRN Q4HRS PRN 12/19/18 08:00 12/20/18 15:39 2 TAB Oxytocin (Pitocin) 10 unit STK-MED ONCE 12/18/18 23:42 12/19/18 17:29 DC Oxytocin/Sodium Chloride 500 ml @ 62.5 mls/hr CONT PRN 12/18/18 20:30 12/19/18 04:29 DC Phenyleph/Shark Oil/Min Oil/Petrol (Preparation H) 1 claude PRN QID PRN 12/18/18 20:30 Propofol 40 ml @ As Directed STK-MED ONCE 12/18/18 23:42 12/19/18 17:29 DC Ringer's Solution 1,000 ml @ 125 mls/hr Q8H 12/18/18 19:55 12/19/18 17:29 DC 12/19/18 05:40 125 MLS/HR Rocuronium [place] (Zemuron) 50 mg STK-MED ONCE 12/18/18 23:44 12/19/18 17:29 DC Sevoflurane (Ultane) 60 ml STK-MED ONCE 12/19/18 01:00 12/19/18 17:29 DC Simethicone (Gas-X) 80 mg PRN AFTMEALHC PRN 12/18/18 20:30 12/20/18 10:26 80 MG Sodium Chloride (Normal Saline Flush) 10 ml QSHIFT PRN 12/18/18 20:30 Succinylcholine Chloride (Anectine) 200 mg STK-MED ONCE 12/18/18 23:15 12/19/18 17:29 DC Terbutaline Sulfate (Brethine) 0.25 mg 1X PRN PRN 12/18/18 20:00 12/19/18 17:29 DC Zolpidem Tartrate (Ambien) 5 mg PRN QHS PRN 12/18/18 20:30 ASSESSMENT & PLAN A&P Patient alert and wants rinaldi rest. She will be dismissed today. Patient has had Psych Consult. Will go with Cab arrangement to another Facility. FLAQUITO YEH MD December 21, 2018 07:55
--- NOTE | 2018-12-21 11:20 | NUR ---
home instructions gone over with pt. instructed pt on tramodol script for pain. pt has flat affect, instructed pt will dc after lunch and will call for taxi to treatment center. she was unresponsive to this
[2018-12-21 13:04] VITALS: BP 112/72
--- NOTE | 2018-12-21 14:55 | NUR ---
discussed with pt about cab pass to treatment center. does not want to go now will go Sunday has thing she needs to get done first. Instructed pt that is important to go now. [facility] will not do this today refuses our cab pass [facility] has cab coming to pick her up at front door.
--- NOTE | 2018-12-21 15:05 | NUR ---
pt ready to leave [facility] has taxi coming now to front door. Taken down to front via w/c pt crying . [facility] has address of tx center will go Sunday
--- NOTE | 2019-01-15 22:13 | DS ---
DATE OF DISCHARGE: 12/21/2018 SUBJECTIVE: The patient is a 33-year-old female who is a 8, para 7. She has been on drugs, substance abuse, brought by a friend from the [facility] to the Labor and Delivery room at [facility] because of labor contractions. At the time of admission to the hospital, cervix 3 cm dilated, the patient in active labor and she has had no care and hence a sonogram was done, which reveals 39 weeks with oligohydramnios and also the abdominal circumference of the baby bigger than the head circumference. OBJECTIVE: Vital signs were stable. The patient is quite restless, uncooperative and using abusive language to everyone taking care of her. The patient also had lack of progress and no descent of the head after complete dilatation and baby had a distress. Her bradycardia was 60-70 beats per minute, hence immediate was scheduled and it was problematic to get even signature to do the section. Finally, she did sign the papers, hence she was taken for . HOSPITAL COURSE: Under general anesthesia, lower segment was done. A live female baby, 7 pounds 6 ounces, delivered without any problems and the scores were 2 and 9, and baby was crying after the baby's delivery. She had an uneventful postoperative course. DIAGNOSES: 8, para 7, 39 weeks , oligohydramnios, distress. OPERATION PERFORMED: Emergency lower segment section. PLAN: She will be followed in the office in 2 weeks for further postoperative care and treatment. FLAQUITO YEH MD DR: [email or web address]/[email or web address] JOB#: [id number] / [id number]
== END 2018-12-21 15:10 | disposition home or self-care (01) | DRG 788 ==
LOC: 3 SO LND 16:34 → OBSVTOIN 16:34 → 3 NORTH 12-19 03:39
PROVIDERS: ADMIT Obstetrics & Gynecology; ATTEND Obstetrics & Gynecology
PROC: 10D00Z1 Extraction of Products of Conception, Low, Open Approach (ICD-10-PCS; principal; 2018-12-19)
DX: O41.03X0 Oligohydramnios, third trimester, not applicable or unspecified (principal); O77.9 Labor and delivery complicated by fetal stress, unspecified; Z37.0 Single live birth; Z3A.00 Weeks of gestation of pregnancy not specified
CPT/HCPCS: 36415; 76805; 80307; 81001; 84112; 85007; 85025; 86592; 86703; 86762; 86850; 86900; 86901; 87086; 87340; 88307; J0290; J0330; J1170; J2001; J2405; J2590; J2704; J2765; J3490; J7120